=== PATIENT | female | born 1975 | race Caucasian/White ===

== ENCOUNTER 2020-02-03 16:43 | Emergency (ER) | payer OTHER, SELFPAY ==
[2020-02-03 16:45] VITALS: BP 122/54; PULSE 117; RESP 21; TEMP 36.7; O2SAT 100
--- NOTE | 2020-02-03 17:38 | ED.URI ---
HPI - URI/Sore Throat General Chief Complaint: Upper Respiratory Infection Stated Complaint: fever Time Seen by Provider: 02/03/20 16:59 Source: patient Mode of arrival: ambulatory Limitations: no limitations History of Present Illness HPI Narrative: Patient presents with chief complaint of fever, dry cough, congestion, runny nose, body aches that began yesterday. Patient states she did not receive a flu shot this season. Patient states that she [place] in the [place] where she is exposed to multiple people but she states she has not had any international travel, cruise or known exposure to anyone with coronavirus. Patient states she took ibuprofen for discomfort.Patient is a smoker and has COPD. Related Data Home Medications Medication Instructions Recorded Confirmed glecaprevir-pibrentasvir [Mavyret] 3 tablet PO DAILY 02/03/20 loratadine mg 02/03/20 Allergies Allergy/AdvReac Type Severity Reaction Status Date / Time bee venom protein (honey bee) Allergy Severe anaphylaxis Verified 02/03/20 17:08 Penicillins Allergy Severe anaphylaxis Verified 02/03/20 17:08 Sulfa (Sulfonamide Allergy Severe rash, Verified 02/03/20 17:09 Antibiotics) anaphylaxis Wasp Allergy Severe anaphylaxis Uncoded 02/03/20 17:08 Review of Systems Review of Systems: Narrative: CONSTITUTIONAL: Reports fever, denies chills, or sweats. EYES: Denies visual changes, redness, or discharge. ENT: Reports rhinorrhea, congestion, denies otalgia. CARDIOVASCULAR: Denies chest pain, palpitations, or edema. RESPIRATORY: Reports dry cough denies dyspnea. GASTROINTESTINAL: Denies abdominal pain, nausea, vomiting, or diarrhea. GENITOURINARY: Denies dysuria or hematuria. SKIN: Denies rash or itching. MUSCULOSKELETAL: Denies back pain, joint pain, or myalgia. NEUROLOGIC: Denies headache, numbness, dizziness, or weakness. PSYCHIATRIC: Denies anxiety or depression. [facility] Past Medical History Medical History (Updated 02/03/20 @ 17:46 by Tomasa Masters PA-C) COPD (chronic obstructive pulmonary disease) Surgical History Surgical History (Updated 09/30/19 @ 12:18 by Deb Ledesma) History of hysterectomy Social History Social History (Updated 09/30/19 @ 12:18 by Deb Ledesma) Tobacco type: cigarettes Gender identity (if verbalized by the patient): Female Exam Narrative: Exam Narrative: GENERAL: Well-appearing, well-nourished, and in no acute distress. HEAD: Normocephalic, atraumatic. EYES: PERRLA and EOMI. ENT: Nares clear, no rhinorrhea or epistaxis. Mucous membranes moist. Oropharynx without tonsillar erythema hypertrophy exudate or other lesions. Bilateral TMs pearly maldonado nonbulging CHEST: Clear to auscultation. Not tachypneic. No respiratory distress. No wheezes rales or rhonchi HEART: Regular rate and rhythm. No murmur heard. Normal peripheral pulses. EXTREMITIES: Normal range of motion. No edema. SKIN: Warm, dry, no rash. NEURO: No focal deficits. Alert and oriented x3. PSYCH: Normal mood and affect. Course Vital Signs Vital signs: Vital Signs Temperature 98.0 F 02/03/20 16:45 Pulse Rate 117 H 02/03/20 16:45 Respiratory Rate 21 H 02/03/20 16:45 Blood Pressure 122/54 L 02/03/20 16:45 Pulse Oximetry 100 02/03/20 16:45 Temperature 98.4 F 02/03/20 17:52 Pulse Rate 95 02/03/20 17:52 Respiratory Rate 18 02/03/20 17:52 Blood Pressure 133/87 02/03/20 17:52 Pulse Oximetry 100 02/03/20 17:52 MDM - URI/Sore Throat MDM Narrative Medical decision making narrative: Patient flu test negative but due to comorbidities especially COPD patient will be put on tamiflu. Patient given isolation precautions and symptomatic treatment. She is not wheezing, SOB, or toxic in appearance. Patient instructed to return to emergency department she has any worsening or emergent symptoms. Differential Diagnosis Differential diagnosis: Likely upper respiratory infection, croup, otitis media, sinusitis, viral infect
[2020-02-03 17:52] VITALS: BP 133/87; PULSE 95; RESP 18; TEMP 36.9; O2SAT 100
== END 2020-02-03 18:05 | disposition home or self-care (01) ==
LOC: ANHED 17:59
PROVIDERS: Emergency Provider General Practice
DX: J11.1 Influenza due to unidentified influenza virus with other respiratory manifestations (principal); J44.9 Chronic obstructive pulmonary disease, unspecified; F17.210 Nicotine dependence, cigarettes, uncomplicated
CPT/HCPCS: 87804; 99283

== ENCOUNTER 2021-05-21 10:10 | Outpatient (CLI) | payer MEDICAID, SELFPAY ==
--- NOTE | 2021-05-21 11:30 | NEURO_ITS ---
Impression: # Complains of numbness of hands. # Right ulnar neuropathy across the elbow. # Normal needle/EMG exam. #no carpal tunnel syndrome. Nerve Conduction Studies Anti Sensory Summary Table Stim Site NR Peak (ms) P-T Amp (?V) Site1 Site2 Delta-P (ms) Dist (cm) Kenn (m/s) Left Median Anti Sensory (2-3nd Digit) Wrist 3.3 66.8 Wrist 2-3nd Digit 3.3 14.0 42 Wrist 3.5 48.8 Wrist 2-3nd Digit 3.3 14.0 42 Right Median Anti Sensory (2-3nd Digit) Wrist 3.3 44.9 Wrist 2-3nd Digit 3.3 14.0 42 Wrist 3.5 71.2 Wrist 2-3nd Digit 3.3 14.0 42 Left Radial Anti Sensory (Base 1st Digit) Wrist 2.6 37.6 Wrist Base 1st Digit 2.6 0.0 Right Radial Anti Sensory (Base 1st Digit) Wrist 2.0 28.2 Wrist Base 1st Digit 2.0 0.0 Left Ulnar Anti Sensory (5th Digit) Wrist 2.6 72.9 Wrist 5th Digit 2.6 14.0 54 Right Ulnar Anti Sensory (5th Digit) Wrist 2.7 19.0 Wrist 5th Digit 2.7 14.0 52 Motor Summary Table Stim Site NR Onset (ms) O-P Amp (mV) Site1 Site2 Delta-0 (ms) Dist (cm) Kenn (m/s) Left Median Motor (Abd Poll Brev) Wrist 3.4 5.9 Elbow Wrist 5.0 28.0 56 Elbow 8.4 8.6 Right Median Motor (Abd Poll Brev) Wrist 2.9 8.4 Elbow Wrist 4.5 26.0 58 Elbow 7.4 6.7 Left Ulnar Motor (Abd Dig Minimi) Wrist 2.8 5.0 A Elbow Wrist 4.6 27.0 59 A Elbow 7.4 4.5 Right Ulnar Motor (Abd Dig Minimi) Wrist 2.7 3.8 A Elbow Wrist 5.1 26.0 51 A Elbow 7.8 3.5 B Elbow Wrist 3.6 21.0 58 B Elbow 6.3 4.5 F Wave Studies NR F-Lat (ms) L-R F-Lat (ms) Left Median (Mrkrs) (Abd Poll Brev) 25.86 0.36 Right Median (Mrkrs) (Abd Poll Brev) 25.50 0.36 Left Ulnar (Mrkrs) (Abd Dig Min) 26.02 0.17 Right Ulnar (Mrkrs) (Abd Dig Min) 25.84 0.17 EMG Side Muscle Nerve Root Ins Act Fibs Amp Dur Recrt Comment Right 1stDorInt Ulnar C8-T1 Nml Nml Nml Nml Nml Right Ext Indicis Radial (Post Int) C7-8 Nml Nml Nml Nml Nml Right Ext Digitorum Radial (Post Int) C7-8 Nml Nml Nml Nml Nml Right BrachioRad Radial C5-6 Nml Nml Nml Nml Nml Right PronatorTeres Median C6-7 Nml Nml Nml Nml Nml Right Abd Poll Brev Median C8-T1 Nml Nml Nml Nml Nml Left 1stDorInt Ulnar C8-T1 Nml Nml Nml Nml Nml Left Ext Indicis Radial (Post Int) C7-8 Nml Nml Nml Nml Nml Left Ext Digitorum Radial (Post Int) C7-8 Nml Nml Nml Nml Nml Left BrachioRad Radial C5-6 Nml Nml Nml Nml Nml Left PronatorTeres Median C6-7 Nml Nml Nml Nml Nml Left Abd Poll Brev Median C8-T1 Nml Nml Nml Nml Nml Right ABD Dig Min Ulnar C8-T1 Nml Nml Nml Nml Nml Left ABD Dig Min Ulnar C8-T1 Nml Nml Nml Nml Nml MTDD
== END 2021-05-21 10:11 | disposition home or self-care (01) ==
DX: G56.21 Lesion of ulnar nerve, right upper limb (principal)
CPT/HCPCS: 95886; 95911

== ENCOUNTER 2022-08-22 11:44 | Emergency (ER) | payer MEDICAID, SELFPAY ==
--- NOTE | ~2022-08-22 | XR_ITS ---
EXAMINATION: XR lumbar spine 2-3V DATE: 08/22/2022 12:26 INDICATION: Low back pain post fall TECHNIQUE: Anteroposterior and lateral views of the lumbar spine, and cone-down lateral view of the l umbosacral junction were obtained. COMPARISON: None. FINDINGS: 2 mm retrolisthesis L3 on L4 and and L5 on S1. 1-2 mm anterolisthesis L4 on L5. Vertebral body height s are normal. No evident fracture. Mild disc height loss at T12-L1, L1-L2, L3-L4 and L4-L5. Moderate lower lumbar facet osteoarthritis. Normal bowel gas pattern. Visualized lung bases are clear with nor mal heart size. IMPRESSION: 1. Mild lumbar spondylosis. Reviewed, dictated and finalized at location [facility]. IMPRESSION: 1. Mild lumbar spondylosis.
[2022-08-22 11:52] VITALS: BP 134/80; PULSE 80; RESP 16; TEMP 36.8; O2SAT 100
--- NOTE | 2022-08-22 11:59 | ED.BACK ---
HPI - Back Pain/Injury General Chief Complaint: Back Pain/Injury Stated Complaint: back pain Time Seen by Provider: 08/22/22 11:51 History of Present Illness HPI Narrative: 47-year-old female presents emergency room for evaluation of lower back pain. Patient states that she was picking up a large box of heavy books on Tuesday when she felt a pulling sensation in her right lower back. Patient states the pain radiates down to the back of her leg terminating behind the knee. Patient states movements exacerbate her pain. Denies any saddle anesthesia, denies urinary or bowel dysfunction. Denies any known injury or trauma. Related Data Home Medications Medication Instructions Recorded Confirmed glecaprevir 100 mg-pibrentasvir 40 3 tablet PO DAILY 02/03/20 mg tablet (Mavyret) loratadine 10 mg tablet mg 02/03/20 Allergies Allergy/AdvReac Type Severity Reaction Status Date / Time bee venom protein (honey bee) Allergy Severe anaphylaxis Verified 02/03/20 17:08 Penicillins Allergy Severe anaphylaxis Verified 02/03/20 17:08 Sulfa (Sulfonamide Allergy Severe rash, Verified 02/03/20 17:09 Antibiotics) anaphylaxis Wasp Allergy Severe anaphylaxis Uncoded 02/03/20 17:08 Review of Systems Review of Systems: CONSTITUTIONAL: Denies fever, chills, or sweats. EYES: Denies visual changes, redness, or discharge. ENT: Denies rhinorrhea, congestion, sore throat, or otalgia. CARDIOVASCULAR: Denies chest pain, palpitations, or edema. RESPIRATORY: Denies cough or dyspnea. GASTROINTESTINAL: Denies abdominal pain, nausea, vomiting, or diarrhea. GENITOURINARY: Denies dysuria or hematuria. SKIN: Denies rash or itching. MUSCULOSKELETAL: Reports right lower back pain NEUROLOGIC: Denies headache, numbness, dizziness, or weakness. PSYCHIATRIC: Denies anxiety or depression. [facility] Past Medical History Medical History COPD (chronic obstructive pulmonary disease) Surgical History Surgical History History of hysterectomy Social History Social History Tobacco type: cigarettes Gender identity (if verbalized by the patient): Female Exam Narrative: GENERAL: Well-appearing, well-nourished, no physical limitations, and in no acute distress. HEAD: Normocephalic, atraumatic. EYES: Conjunctivae normal, PERRLA and EOMI. CHEST: Clear to auscultation. No respiratory distress. No wheezes rales or rhonchi. No tenderness. HEART: Regular rate and rhythm. No murmur heard. Normal peripheral pulses. BACK: No midline lumbar tenderness, no step-offs, no bony abnormality; pain with trunk rotation and lateral bend. + SLE RLE EXTREMITIES: Normal range of motion. No edema. No clubbing or cyanosis SKIN: Warm, dry, no rash. No noted wounds NEURO: No focal deficits. Alert and oriented x3. MAEW. CN's II-XI intact bilaterally, normal gait PSYCH: Cooperative. Normal mood and affect. Course Vital Signs Vital signs: Vital Signs Temperature 36.8 C 08/22/22 11:52 Pulse Rate 80 08/22/22 11:52 Respiratory Rate 16 08/22/22 11:52 Blood Pressure 134/80 08/22/22 11:52 Pulse Oximetry 100 08/22/22 11:52 Oxygen Delivery Room Air 08/22/22 11:52 Temperature 36.8 C 08/22/22 11:52 Pulse Rate 80 08/22/22 11:52 Respiratory Rate 16 08/22/22 11:52 Blood Pressure 134/80 08/22/22 11:52 Pulse Oximetry 100 08/22/22 11:52 Oxygen Delivery Room Air 08/22/22 11:52 Discharge Plan Discharge Clinical Impression: Strain of lumbar region Patient Disposition: Home, Self-Care Condition: Stable Instructions: Antibiotic Form, Acute Low Back Pain (ED) Additional Instructions: Stop using the cyclobenzaprine and naproxen while taking these prescription medications. Recommend using a heating pad to the painful area. Prescriptions: New methocarbamol 750 mg tablet
== END 2022-08-22 12:55 | disposition home or self-care (01) ==
PROVIDERS: Emergency Provider Nurse Practitioner Family; PCP Registered Nurse
DX: S39.012A Strain of muscle, fascia and tendon of lower back, initial encounter (principal); X50.0XXA Overexertion from strenuous movement or load, initial encounter; J44.9 Chronic obstructive pulmonary disease, unspecified; Z79.51 Long term (current) use of inhaled steroids
CPT/HCPCS: 72100; 96372; 99283; J1100

== ENCOUNTER 2024-06-05 09:48 | Emergency (ER) | payer BC, SELFPAY ==
[2024-06-05] VITALS (8 sets, daily range): BP systolic 132–161; BP diastolic 83–98; PULSE 75–86; RESP 14–18; TEMP 36.5–36.6; O2SAT 97–100
--- NOTE | ~2024-06-05 | CT_ITS ---
Clinical Indication: Chest pain, trauma CT Scan of the Chest, Abdomen, and Pelvis with Contrast: Technique: Contiguous sections were acquired throughout the chest, abdomen, and pelvis after intraven ous administration of 100 cc of Omnipaque 350. Dose reduction technique was used on this scan by uti lizing automated exposure control and iterative reconstruction technique. The dose-length product (DL P) was 521.51 mGy-cm. Findings: There is no evidence of any significant mediastinal, hilar or axillary lymphadenopathy. The mediastin al soft tissues appear normal. There is no evidence of pleural or pericardial effusion. Severe emphysema present. No pulmonary nodule or consolidation. The liver, spleen, pancreas, gallbladder, adrenals and kidneys are within normal limits. There are at herosclerotic calcifications of the aorta. No lymphadenopathy. No bowel obstruction or bowel wall thickening. There is no evidence to suggest acute appendicitis. Urinary bladder is unremarkable. No pelvic mass seen. No ascites. Impression: Severe emphysema. No acute abnormality seen. Reviewed, dictated and finalized at [facility]. Impression: Severe emphysema. No acute abnormality seen.
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
[2024-06-05 10:53] LABS: Basophils Percent Auto 0.6 % (0.2-1.2); Eosinophils Absolute Auto 0.2 K/mm3 (0-0.3); Eosinophils Percent Auto 4.4 % (0-4.4); Hemoglobin 14.6 g/dL (12.0-15.0); Immature Granulocyte Absolute 0.01 K/mm3 (0.00-0.031); Immature Granulocyte Percent A 0.2 % (0-0.5); Lymphocytes Absolute Auto 1.15 K/mm3 (0.9-3.2); Lymphocytes Percent Auto 23.1 % (18.3-44.2); Mean Corpuscular Hemoglobin 32.1 pg (26-34); Mean Corpuscular Volume 94.5 fl (80-100); Mean Platelet Volume 10.5 fl (7.4-10.4); Monocytes Absolute Auto 0.4 K/mm3 (0.1-0.6); Monocytes Percent Auto 7.8 % (2.6-8.5); Neutrophils Absolute Auto 3.2 K/mm3 (1.3-6.7); Neutrophils Percent Auto 63.9 % (45.5-73.1); Platelet Count Result 198 k/mm3 (150-375); Red Blood Count 4.55 M/mm3 (4.2-5.4); Red Cell Distribution Width 13.2 % (11.5-14.5)
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
[2024-06-05] MEDS: IPRATROPIUM 0.5 MG/ALBUTEROL SULFATE 2.5 MG AMPUL.NEB 3 ML INHALATION (11:14)
[2024-06-05 11:22] LABS: Alanine Aminotransferase 14 U/L (6-35); Albumin Level 4.5 g/dL (3.5-5.1); Alkaline Phosphatase 64 U/L (38-126); Anion Gap 9 mmol/L (4-12); Aspartate Amino Transferase 23 U/L (14-36); Bilirubin,Total 0.4 mg/dL (0.2-1.3); Blood Urea Nitrogen 7 mg/dL (7-17); Calcium 9.1 mg/dL (8.4-10.2); Carbon Dioxide 27 mmol/L (22-30); Chloride 104 mmol/L (98-107); Estimated CRCL calculation 78 ml/min; Estimated Glomerular Filt Rate > 60; Glucose 95 mg/dL (65-110); INR 0.9; Potassium 3.4 mmol/L (3.4-5.0); Sodium 140 mmol/L (137-145)
[2024-06-05 11:23] LABS: Partial Thromboplastin Time 27.8 Seconds (22.3-36.8)
[2024-06-05] MEDS: methylPREDNISolone SOD SUCC 125 MG VIAL IV PUSH (11:51)
[2024-06-05] MEDS: ACETAMINOPHEN 500 MG TABLET 1000 MG PO (11:51)
== END 2024-06-05 13:04 | disposition home or self-care (01) ==
PROVIDERS: Emergency Provider Physician Assistant; PCP Registered Nurse
DX: J44.1 Chronic obstructive pulmonary disease with (acute) exacerbation (principal)
CPT/HCPCS: 36415; 71046; 71100; 71260; 74177; 80053; 85025; 85610; 85730; 94640; 96374; 99284; A9270; J2919; Q9967

== ENCOUNTER 2025-10-04 16:49 | Emergency (ER) | payer SELFPAY ==
--- NOTE | ~2025-10-04 | XR_ITS ---
XR foot RT 2V INDICATION: possible foreign body . COMPARISON: None. FINDINGS: Frontal and lateral views of the right foot were obtained. There is no acute fracture or dislocation. Radiopaque density along the medial aspect of the second metatarsal pharyngeal joint may represent foreign body. IMPRESSION: Radiographic examination of the right foot demonstrates no acute fracture or dislocation. Reviewed, dictated and finalized at location S. S MELT OPERATOR IMPRESSION: Radiographic examination of the right foot demonstrates no acute fracture or di slocation.
[2025-10-04 16:51] VITALS: BP 145/97; PULSE 95; RESP 18; TEMP 36.4; O2SAT 100
--- NOTE | 2025-10-04 18:01 | ED_ITS ---
HPI - Wound/Laceration General Chief Complaint: Wound/Laceration Stated Complaint: lac to right foot Time Seen by Provider: 10/04/25 17:09 History of Present Illness HPI narrative: Patient 50-year-old female who presents to the ER after sustaining a laceration to her right foot. She reports she was outside of [facility] when she accidentally stepped on a piece of metal sticking out of the ground. Patient reports the metal went into her foot. She reports she is not up-to-date on her tetanus shot. Patient reports the site bled a lot initially but has since subsided. She reports the pain feels as though she has a hot developmental mathematics instructor her foot. Patient denies any medical history relevant to this ER visit. She denies any decreased range of motion in her right foot, purulence drainage from the site, decreased range of motion her right ankle. Related Data Home Medications ?Medication ?Instructions ?Recorded ?Confirmed ?Last Taken ?Type glecaprevir 100 mg-pibrentasvir 40 3 tablet PO DAILY 0 02/03/20 Unknown History mg tablet (Mavyret) loratadine 10 mg tablet mg 02/03/20 Unknown History Allergies Allergy/AdvReac Type Severity Reaction Status Date / Time bee venom protein (honey bee) Allergy Severe anaphylaxis Verified 02/03/20 17:08 Penicillins Allergy Severe anaphylaxis Verified 02/03/20 17:08 Sulfa (Sulfonamide Allergy Severe rash, Verified 02/03/20 17:09 Antibiotics) anaphylaxis Wasp Allergy Severe anaphylaxis Uncoded 02/03/20 17:08 Review of Systems Review of Systems: All systems reviewed & are unremarkable except as noted in HPI and below PMFSH Past Medical History Medical History COPD (chronic obstructive pulmonary disease) Surgical History Surgical History History of hysterectomy Social History Social History Tobacco type: cigarettes Gender identity (if verbalized by the patient): Female Exam Narrative: GENERAL: Well appearing, well-nourished, non-toxic, in no acute distress. HEAD: Normocephalic, atraumatic. NECK: Supple. No adenopathy, no masses. RESPIRATORY: Airway patent, respirations nonlabored. Clear to auscultation bilaterally, no rales, rhonchi, wheezing. CARDIOVASCULAR: Regular rate and rhythm without murmurs, rubs, or gallops. Peripheral pulses 2+ and equal bilaterally. ABDOMINAL: Soft, nontender, nondistended, no hepatosplenomegaly. Normoactive BS. MUSCULOSKELETAL: Moves all extremities. Strength/ROM intact without gross deformities. SKIN: Warm, dry, normal color. No rashes. Approximately 3 cm linear laceration to plantar surface of pt's R foot, bleeding controlled NEURO: A&O X3. Speech clear. Cranial nerves II-XII intact. No ataxic movements. PSYCHIATRIC: Appropriate mood and affect. Normal interaction. Course Vital Signs Vital signs: Vital Signs Temperature 36.4 C 10/04/25 16:51 Pulse Rate 95 10/04/25 16:51 Respiratory Rate 18 10/04/25 16:51 Blood Pressure 145/97 H 10/04/25 16:51 Pulse Oximetry 100 10/04/25 16:51 Oxygen Delivery Room Air 10/04/25 16:51 Temperature 36.4 C 10/04/25 16:51 Pulse Rate 95 10/04/25 16:51 Respiratory Rate 18 10/04/25 16:51 Blood Pressure 145/97 H 10/04/25 16:51 Pulse Oximetry 100 10/04/25 16:51 Oxygen Delivery Room Air 10/04/25 16:51 Procedures Laceration Laceration 1: Date: 10/04/25 Time: 19:02 Site: lower extremity Side (If applicable): right Size (cm): 3 Description: linear Depth: simple, single layer Local Anesthetic: lidocaine 1% and with epi Amount of anesthesia used (mL): 5 Pre-repair: irrigated extensively ====== Skin Level ====== Skin layer closed with: nylon Size (cm): 4-0 Number of sutures: 3 Technique: simple, interrupted ====== Subcutaneous Layer ====== ====== Muscle Layer ====== ====== Tendon Layer ====== MDM - Wound/Laceration MDM Narrative Medical decision making narrative: Patient 50-year-old female who presents to the ER after sustaining a laceration to her right foot. She reports she was outside of [facility] when she accidentally stepped on a piece of metal sticking out of the ground. Patient reports the metal went into her foot. She reports she is not up-to-date on her tetanus shot. Patient reports the site bled a lot initially but has since subsided. She reports the pain feels as though she has a hot developmental mathematics instructor her foot. Patient denies any medical history relevant to this ER visit. She denies any decreased range of motion in her right foot, purulence drainage from the site, decreased range of motion her right ankle. Labs Ordered: None necessary Imaging Ordered: R foot x-ray Medications Ordered: [place] PO, Lidocaine infiltrate Results: Pt's x-ray indicates Radiographic examination of the right foot demonstrates no acute fracture or dislocation. Diagnosis: R foot laceration MDM: Vital signs stable upon arrival. No other injuries. Pt received Tdap here in the ER. No active bleeding upon my evaluation. X-ray obtained and negative for acute findings. Lidocaine with epi was used with adequate anesthesia. Laceration was repaired with 3 sutures without complications. Patient was given wound care instructions and advised to follow-up with primary care doctor in 10- 14 days for suture removal. He was given reasons to return to the ED. All questions answered. Vital signs stable at time of discharge. Differential Diagnosis Differential diagnosis: Likely laceration, abrasion and avulsion of skin Imaging Data Attestation: I personally reviewed and interpreted this imaging study as follows: Radiologist's impression: Impressions Foot X-Ray 10/04/25 17:11 IMPRESSION: Radiographic examination of the right foot demonstrates no acute fracture or dislocation. Discharge Plan Discharge Clinical Impression: Laceration Patient Disposition: Home Condition: Stable Instructions: Antibiotic Form, Care For Your Stitches (ED), Laceration (ED) Additional Instructions: Please return to the ER with any worsening symptoms. Follow-up with primary care provider in 10-14 days for suture removal. Take all medications as prescribed, including regularly scheduled medications. You may take Tylenol and/or ibuprofen as needed for pain control. Please do not do any weight- bearing activities on the affected foot and use your crutches. you may allow water and soap to run over the site but please do not soak in any water. Patient Language: [place] Prescriptions: No Action Mavyret 100-40 mg Tablet 3 tablet PO DAILY loratadine 10 mg Tablet oseltamivir [Tamiflu] 75 mg capsule 75 mg PO Q12H 5 Days Qty: 10 0RF benzonatate [Tessalon Perles] 100 mg capsule 100 mg PO BID PRN (Reason: cough) Qty: 20 0RF prednisone 20 mg tablet 40 mg PO DAILY 4 Days Qty: 8 0RF albuterol sulfate 90 mcg/actuation HFA aerosol inhaler 2 puff inhalation QID PRN (Reason: shortness of breath or wheezing) Qty: 8.5 0RF albuterol sulfate 90 mcg/actuation HFA aerosol inhaler 2 inhalation INHALATION QID PRN (Reason: shortness of breath) Qty: 8.5 0RF methocarbamol 750 mg tablet 750 mg PO TID Qty: 15 0RF meloxicam 15 mg tablet 15 mg PO DAILY Qty: 10 0RF Follow-up/Referrals: Yasmani,ROJELIO Cordero [Primary Care Provider] Stand Alone Forms: Work/School Release IP Time of Disposition: 19:11
[2025-10-04] MEDS: TETANUS,DIPHTHERIA,AC PERTUSSIS ADULT (0.5 ML) BOOSTRIX IM (18:19)
[2025-10-04] MEDS: HYDROcodone/acetaminophen (*CRX) 5-325 MG TABLET 1 TAB PO (18:20)
== END 2025-10-04 19:38 | disposition home or self-care (01) ==
PROVIDERS: Emergency Provider Registered Nurse; PCP Registered Nurse
DX: S91.311A Laceration without foreign body, right foot, initial encounter (principal); W22.8XXA Striking against or struck by other objects, initial encounter; J44.9 Chronic obstructive pulmonary disease, unspecified; Z23 Encounter for immunization
CPT/HCPCS: 12002; 73620; 90471; 90715; 99283; A9270

== ENCOUNTER 2025-11-08 12:32 | Emergency (ER) | payer SELFPAY ==
--- NOTE | ~2025-11-08 | XR_ITS ---
EXAMINATION: XR foot LT min 3V, 11/08/2025 13:54 [employer]ARD LABOR SUPERVISOR HISTORY: nontraumatic pain COMPARISON: No comparisons available. Findings: No acute fracture or malalignment. No significant degenerative changes. Soft tissues unremarkable. Impression: No acute fracture or malalignment. Reviewed, dictated and finalized at location P. LABOR SUPERVISOR Impression: No acute fracture or malalignment.
[2025-11-08 12:34] VITALS: BP 116/73; PULSE 100; RESP 20; TEMP 36; O2SAT 100
--- NOTE | 2025-11-08 13:11 | ED.LOWEXIN ---
HPI - Extremity Injury (Lower) General Chief Complaint: Extremity Injury, Lower Stated Complaint: right foot pain with wound reopening Time Seen by Provider: 11/08/25 13:06 Source: patient Mode of arrival: ambulatory Limitations: no limitations History of Present Illness HPI Narrative: 50 years old white female came to the ED with pain at the sutured wound at the bottom of left foot and inability to move lateral 4 toes started October 04 after having a piece of metal punctured the bottom of her foot at that time. Patient was seen by offender employment specialist twice and was not happy with his explanation. Was told to wait for couple weeks for further evaluation. Patient denies any fever, chills, nausea, vomiting, or wound discharge. Related Data Home Medications ?Medication ?Instructions ?Recorded ?Confirmed ?Last Taken ?Type glecaprevir 100 mg-pibrentasvir 40 3 tablet PO DAILY 02/03/20 Unknown History mg tablet (Mavyret) loratadine 10 mg tablet mg 02/03/20 Unknown History Allergies Allergy/AdvReac Type Severity Reaction Status Date / Time bee venom protein (honey bee) Allergy Severe anaphylaxis Verified 11/08/25 12:33 Penicillins Allergy Severe anaphylaxis Verified 11/08/25 12:33 Sulfa (Sulfonamide Allergy Severe rash, Verified 11/08/25 12:33 Antibiotics) anaphylaxis Wasp Allergy Severe anaphylaxis Uncoded 02/03/20 17:08 Review of Systems Review of Systems: All systems reviewed & are unremarkable except as noted in HPI and below PMFSH Past Medical History Medical History COPD (chronic obstructive pulmonary disease) Surgical History Surgical History History of hysterectomy Social History Social History Tobacco type: cigarettes Gender identity (if verbalized by the patient): Female Exam Narrative: General appearance: Well-developed, well-nourished Skin: Normal color Head: Normocephalic, nontraumatic Vascular: Normal peripheral pulses, normal capillary refill. Musculoskeletal: Left foot exam showed 3 sutures at the sole, wound clean and dry, no redness, no discharge, localized tenderness. The rest of the foot exam within normal limit Neurologic: Alert and oriented ?3, WALLPAPER SCRAPER is normal as tested, no gross motor deficit Course Vital Signs Vital signs: Vital Signs Temperature 36.0 C L 11/08/25 12:34 Pulse Rate 100 11/08/25 12:34 Respiratory Rate 20 11/08/25 12:34 Blood Pressure 116/73 11/08/25 12:34 Pulse Oximetry 100 11/08/25 12:34 Oxygen Delivery Room Air 11/08/25 12:34 Temperature 36.0 C L 11/08/25 12:34 Pulse Rate 100 11/08/25 12:34 Respiratory Rate 20 11/08/25 12:34 Blood Pressure 116/73 11/08/25 12:34 Pulse Oximetry 100 11/08/25 12:34 Oxygen Delivery Room Air 11/08/25 12:34 [facility] MDM Narrative Medical decision making narrative: patient came to the ED for a left foot post sutured laceration evaluation. Vital signs are stable Physical examination showing tenderness at the sutured laceration otherwise within normal limit X-ray of the left foot showed no acute abnormality. Patient was advised to follow-up with her offender employment specialist for further evaluation. Differential Diagnosis Differential Diagnosis: Infection, retaining foreign body, osteomyelitis Imaging Data Radiologist's impression: ITS Impressions Foot X-Ray 11/08/25 14:02 Impression: No acute fracture or malalignment. Critical Care Time Critical Care Time Critical Care Time: No Discharge Plan Discharge Clinical Impression: Encounter for evaluation of wound Patient Disposition: Home Condition: Stable Instructions: Care For Your Stitches (ED) Additional Instructions: Return if symptoms are worsening , call Mash Filter Cloth Changer for appointment, take Tylenol, ibuprofen as as needed for aches and pain, continue home medications. Patient Language: [place] Prescriptions: No Action Mavyret 100-40 mg Tablet 3 tablet PO DAILY loratadine 10 mg Tablet oseltamivir [Tamiflu] 75 mg capsule 75 mg PO Q12H 5 Days Qty: 10 0RF benzonatate [Tessalon Perles] 100 mg capsule 100 mg PO BID PRN (Reason: cough) Qty: 20 0RF prednisone 20 mg tablet 40 mg PO DAILY 4 Days Qty: 8 0RF albuterol sulfate 90 mcg/actuation HFA aerosol inhaler 2 puff inhalation QID PRN (Reason: shortness of breath or wheezing) Qty: 8.5 0RF albuterol sulfate 90 mcg/actuation HFA aerosol inhaler 2 inhalation INHALATION QID PRN (Reason: shortness of breath) Qty: 8.5 0RF methocarbamol 750 mg tablet 750 mg PO TID Qty: 15 0RF meloxicam 15 mg tablet 15 mg PO DAILY Qty: 10 0RF Follow-up/Referrals: Yasmani,ROJELIO Cordero [Primary Care Provider] Ramon Marcos Jr., DPM [Physician, Podiatry] - 11/11/25
[2025-11-08 14:29] VITALS: BP 122/73; PULSE 89; RESP 18; TEMP 36.2; O2SAT 100
== END 2025-11-08 14:31 | disposition home or self-care (01) ==
PROVIDERS: Emergency Provider Emergency Medicine; PCP Registered Nurse
DX: Z48.817 Encounter for surgical aftercare following surgery on the skin and subcutaneous tissue (principal); J44.9 Chronic obstructive pulmonary disease, unspecified
CPT/HCPCS: 73630; 99282; 99283; 99284